=== PATIENT | male | born 1950 | race Caucasian/White ===

== ENCOUNTER → 2017-09-29 11:01 | Outpatient (CLI) | payer BC, SELFPAY ==
--- NOTE | 2017-09-29 11:17 | MRI_ITS ---
MR Brain WO/W Contrast INDICATION: phantosomia (smoke)x 4 weeks, NKI, NO PAIN COMPARISON: None TECHNIQUE: Multiplanar multisequence MRI examination of the brain without and with IV contrast. 10 mL of GADAVIST given intravenously.. FINDINGS: There is no evidence of restricted diffusion to suggest acute ischemia/infarction. Ventricular system is normal in size and symmetric. Cortical sulci, sylvian fissures, and basal cisterns are well seen. Cao-white matter differentiation is normal. Midline structures and craniocervical junction are normal. The cerebellopontine angles are normal and symmetric. Supra-and infratentorial brain parenchyma demonstrates normal signal. The olfactory bulbs are normal and symmetric. There is no evidence of parenchymal microhemorrhage, mass effect or midline shift, or abnormal extra-axial collection. After contrast administration, there is no abnormal enhancement identified. Flow-voids of the [place] vascularity are well seen. The paranasal sinuses and mastooid air cells are clear. MRI/Brain W/WO Contrast IMPRESSION: Normal noncontrast MRI examination of the brain. Normal appearance of the olfactory bulbs. at 1410 Reported and signed by: Sue Jiménez MD Electronically Signed: Sue Jiménez MD at 13:08 EDT Tel , Service support ,
[2017-09-29 11:41] LABS: CREATININE FINGERSTICK 0.7 mg/dL (0.70-1.30); EGFR FINGERSTICK > 60.0000 mL/min (>60)
== END ==
PROVIDERS: Family Provider Internal Medicine; PCP Internal Medicine; Visit Provider Otolaryngology
DX: Z01.812 Encounter for preprocedural laboratory examination (principal); R43.8 Other disturbances of smell and taste
CPT/HCPCS: 70553; A9585

== ENCOUNTER → 2017-12-14 09:29 | Outpatient (CLI) | payer BC, SELFPAY ==
--- NOTE | 2017-12-14 09:33 | RAD_ITS ---
STUDY: X-RAY - LEFT SHOULDER REASON FOR EXAM: Male, 67 years old. Pain. Impingement syndrome. TECHNIQUE: 4 view(s) of the shoulder. COMPARISON: None. FINDINGS: There is mild degenerative arthrosis of the glenohumeral articulation. Normal acromioclavicular joint. Normal acromion. Hold nonhealed avulsion fracture of the greater tuberosity of the proximal humerus. The soft tissue structures are unremarkable. Normal visualized pulmonary apex. RAD/Shoulder min 2 Views IMPRESSION: Old avulsion fracture of the greater tuberosity of the proximal humerus. Mild degree of osteoarthritis. Electronically Signed: Higinio Brothesr MD at 15:54 EDT Tel [phone], Service support ,
== END ==
PROVIDERS: Family Provider Internal Medicine; PCP Internal Medicine; Visit Provider Physician Assistant
DX: M75.42 Impingement syndrome of left shoulder (principal); M25.512 Pain in left shoulder
CPT/HCPCS: 73030

== ENCOUNTER → 2018-02-03 09:45 | Outpatient (CLI) | payer BC, SELFPAY ==
--- NOTE | 2018-02-03 09:47 | RAD_ITS ---
STUDY: X-RAY - CERVICAL SPINE REASON FOR EXAM: Male, 67 years old. Neck pain for one month. TECHNIQUE: 6 view(s) of the cervical spine were obtained. COMPARISON: None FINDINGS: There is generalized osteopenia. Normal anterior atlantoaxial articulation. Normal odontoid process. Normal cervical lordosis. Normal vertebral bodies and endplates. There is intervertebral disc space narrowing at C5-6 and C6-7 with osteophyte formation. There is anterior bony neural foraminal encroachment at C5-6 and C6-7. There is diffuse uncovertebral and facet sclerosis. The soft tissue structures are unremarkable. RAD/Cerv Spine 4 or 5 Views IMPRESSION: Osteopenia with lower cervical spondylosis. Electronically Signed: Cristhian Gomez MD at 16:35 EDT , Service support ,
== END ==
PROVIDERS: Family Provider Internal Medicine; PCP Internal Medicine; Visit Provider Orthopaedic Surgery
DX: M54.2 Cervicalgia (principal)
CPT/HCPCS: 72050

== ENCOUNTER → 2018-02-10 16:56 | Outpatient (CLI) | payer BC, SELFPAY ==
--- NOTE | 2018-02-10 17:32 | MRI_ITS ---
STUDY: MRI CERVICAL SPINE WITHOUT CONTRAST REASON FOR EXAM: Male, 67 years old. Neck pain for 2 months and left arm numbness TECHNIQUE: Standardized fat and water weighted pulse sequences were obtained in the sagittal and axial planes. COMPARISON: None FINDINGS: Normal foramen magnum and brainstem-cervical cord junction. Normal craniovertebral junction. Normal anterior atlantoaxial articulation. Normal odontoid process. Normal cervical lordosis. Normal vertebral bodies and posterior osseous elements. C2-3: Disc osteophyte complex without compressive sequelae. C3-4: Disc osteophyte complex with mild central canal and severe bilateral foraminal stenoses. C4-5: Disc osteophyte complex with severe central canal stenosis, mild cord compression, and severe bilateral foraminal stenoses. C5-6: Disc osteophyte complex with moderate to severe central canal stenosis and severe bilateral foraminal stenoses. C6-7: Disc osteophyte complex with moderate central canal stenosis and severe bilateral foraminal stenoses. C7-T1: Disc osteophyte complex and left paracentral disc protrusion with mild deformity of the ventral cord and mild bilateral foraminal stenoses. Incompletely imaged disc disease at T1-2, possibly with left foraminal disc extrusion. Consider dedicated thoracic spine MRI to evaluate further if indicated. No cord signal abnormalities are seen. Normal visualized soft tissue structures. MRI/Spine Cervical (Routine) IMPRESSION: Diffuse degenerative disease as described. Severe bilateral foraminal stenoses at C3-4, C4-5, C5-6, and C6-7. Severe central canal stenosis and mild cord compression at the C4-5 level. Incompletely imaged disc disease at T1-2, possibly with left foraminal disc extrusion. Consider dedicated thoracic spine MRI to evaluate further if indicated. Electronically Signed: Robinson Yadav MD at 2:00 EDT Tel , Service support ,
== END ==
PROVIDERS: Family Provider Internal Medicine; PCP Internal Medicine; Visit Provider Orthopaedic Surgery
DX: M54.12 Radiculopathy, cervical region (principal); M46.92 Unspecified inflammatory spondylopathy, cervical region; M25.78 Osteophyte, vertebrae
CPT/HCPCS: 72141

== ENCOUNTER 2018-04-01 09:00 | Outpatient (RCR) | payer BC, SELFPAY ==
--- NOTE | 2018-02-08 15:12 | HP.PTEVAL_ITS ---
Patient's Visit Information KIAH GARVIN is a 67 year old M referred to Physical Therapy by Melania Darby DO with a diagnosis of CREVICAL RADICULOPATHY. Date of Evaluation: 02/08/18 Physical Therapist: Noreen Hi - Visit Plan Frequency: 2-3x /Week Duration: 4-6 Weeks Plan: CHECK MRI RESULTS. POSTURE CORRECTION/STRENGTHENING, INSTRUCTION IN APPROPRIATE BODY MECHANICS AND ACTIVITY MODIFICATIONS. ANTHONY UE ROM, STRETCHING AND STRENGTHENING. HEP INSTRUCTION. TRIAL OF CERVICAL TRACTION. CONSIDER DRY NEEDLING IF PATIENT AGREEABLE. US, STM AND E-STIM NEEDED/ INDICATED. - Subjective Subjective: Diagnosis: CERVICAL RADICULOPATHY. 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 Disability: NO. Present symptoms: LEFT NECK PAIN AND NUMBNESS ALONG INSIDE OF ARM TO WRIST. SOME PAIN INTO LEFT PEC. Present since: NOVEMBER 2017. Pain Scale: Worst - 4/10 Least - 1/10. Currently: 09/25. Commenced as a result of: NO APPARENT REASON. Symptoms at onset: NUMBNESS IN LEFT ARM. Worse: LOOKING UP AND TO THE LEFT, SQUEEZING SHOULER BLADES TOGETHER, PLAYING [employer] [facility], PROLONGED SITTING AT DESK, LOOKING AT COMPUTER SCREEN A LOT. Better: TILTING HEAD TO THE RIGHT, LYING DOWN. Disturbed sleep: YES. Previous history/ Previous treatment: ABOUT 10 YEARS AGO HAD NECK AND RIGHT UE SX'S BUT THEY WENT AWAY. CHIROPRACTOR IN THE PAST MAINLY FOR LOW BACK. THIS EPISODE WENT FOR NECK - 2 TIMES BUT EACH TIME PROVOKED LEFT UE SX'S AND DID NOT GO BACK. Dizziness: NO. Tinnitis: NO. Nausea: NO. Difficulty Swollowing: NO. Gait : NORMAL. Accidents: NO. Unexplained weight loss: NO. Imaging: MRI PENDING WEDNESDAY. NECK X-RAYS RECENTLY SHOWING ARTHRITIS C5C6 PER PATIENT REPORT. PMH/Recent major surgery: HTN, RIGHT TKR - Objective Sitting Posture/Standing Posture: POOR. RIGHT CERVICAL SIDE BEND. Other Observations: INDEP GAIT AND TRANSFERS. Motor deficit: ANTHONY UE'S 5/5 WITH MMT' ING. 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 Sensory deficit: DECREASED LIGHT TOUCH SENSATION OF LEFT MEDIAL ARM AND FOREARM. ROM deficit: ANTHONY UE'S WFL. Reflexes: UNABLE TO ELICIT ANTHONY UE DTR' S. Dural Signs: POSITIVE LEFT UE. Cervical Mvmt Loss: Flex: NIL. Pro: NIL. Ext: MOD - PROVOKES LEFT ARM AND FOREARM MEDIAL TINGLING. Ret: HILDA - PROVOKES LEFT ARM AND FOREARM MEDIAL TINGLING AND INTO LEFT PEC. RSB: MOD - DECREASES LEFT UE SX'S IN SIDEBENT POSITION BUT UE SX'S INCREASE AGAIN UPON RETURN. LSB: HILDA - PROVOKES LUE SX'S. R Rot: MOD - PRODUCES NECK PAIN. L Rot: MOD - PRODUCES LEFT PEC. Postural strength: POOR. Palpation: TENDERNESS WITH PALPATION OF THE UPPER THORACIC AND LOWER CERVICAL SPINE. INCREASED MUSCLE TONE THROUGHOUT NECK. DISTRACTION: TEMPORARY RELIEF OF SX'S. NB/NW A RESULT. - Goals Goal 1:: DECREASE C/O NECK AND LEFT UE SX'S. Goal Time Frame: 4-6 Weeks Goal 2:: IMPROVE PERSONAL CARE, READING, SLEEP, DRIVING AND RECREATIONAL FUNCTION. Goal Time Frame: 4-6 Weeks Goal 3:: INSTRUCT IN PROPHYLAXIS Goal Time Frame: 4-6 Weeks - Rehabilitation Potential Rehabilitation Potential: Questionable - Anticipated Interventions Patient/Client Instruction: Educate patient on: Condition, Plan of Care, Risk Factors, Benefits of Fitness Program For the Purpose of:: To improve self management Therapeutic Exercise to Include: Strength training, Body mechanics, Postural training, Flexibilty training, Active ROM, Scapular Strength/Stabilization For the Purpose of:: To decrease pain, To increase ROM, To improve muscle performance and motor function, To increase tolerance to activity/condition/ position, To improve ability of physical actions for home/community/work/leisure Manual Therapy Techniques to Include: Soft tissue mobilization For the Purpose of:: To decrease pain, To decrease swelling/inflammation, To increase ROM, To improve nutrient delivery to tissue TENS: Yes IF ES: Yes Cryotherapy (ice pack, ice massage): Yes Thermo therapy (hot pack): Yes Ultrasound (thermal/non thermal): Yes For the Purpose of:: To decrease pain, To decrease swelling/inflammation, To improve nutrient delivery to tissue Thank you for the opportunity to evaluate your patient. For Medicare and Medicare HMO plans, please review the plan of care and approve it. It will need to be FAXED BACK to us at [phone] for Medicare purposes. Please let me know if there are questions or concerns regarding this plan of care. Physician Signature: Date:
--- NOTE | 2018-03-08 14:33 | HP.PTREVAL_ITS ---
Melania Darby, , It has been my pleasure to treat KIAH GARVIN over the last 7 visits for CREVICAL RADICULOPATHY. Please see the progress note below for an update on the physical therapy plan of care! Subjective: PATIENT IS REPORTING LESS LUE NUMBNESS TODAY FOR NO APPARENT REASON. I STILL HAVE SOME BUT IT IS NOT TO THE DEGREE IT HAD BEEN. NO STABBING PAIN. INTERMITTENT ACHY PAIN BETWEEN SPINE AND SHOULDER BLADE. TODAY I FEEL THE BEST I HAVE IN A MONTH AND A HALF. UP TO 4/10 PAIN IN NECK SHOULDER BLADE REGION AT ITS WORST IN THE LAST FEW DAYS. APPOINTMENT WITH DR. RODRIGUEZ TOMORROW. PATIENT REPORTS HOME EX'S ARE GOING WELL. Objective/Function: SLOW PROGRESS TOWARD SET PT GOALS. UPON EXAM TODAY: Sitting Posture/Standing Posture: FAIR. RIGHT CERVICAL SIDE BEND THAT IS VERY MINIMAL AT THE START OF THE SESSION AND INCREASES THE SESSION PROGRESS'S. Other Observations: INDEP GAIT AND TRANSFERS. Motor deficit: ANTHONY UE'S 5/5 WITH MMT'ING. Sensory deficit: DECREASED LIGHT TOUCH SENSATION OF LEFT MEDIAL ARM AND FOREARM ONLY. ROM deficit: ANTHONY UE'S WFL. Dural Signs: POSITIVE LEFT UE. Cervical Mvmt Loss: Flex: NIL - NE. Pro: NIL - NE. Ext: MOD - NE AND LOOKING UP TO THE LEFT USE TO INCREASE LUE SX'S BUT NOT TODAY. Ret: HILDA - NE AT FIRST BUT REPETITION PROVOKES LEFT ARM AND FOREARM MEDIAL TINGLING. RSB: MOD -NE. LSB: MOD. THIS IS AN IMPROVEMENT AND TODAY IT DOES NOT INCREASE LUE SX'S. R Rot: MOD - NE. L Rot: MIN - PRODUCES LEFT PEC. Postural strength: FAIR. Palpation: TENDERNESS WITH PALPATION OF THE UPPER THORACIC SPINE ONLY TODAY. INCREASED MUSCLE TONE THROUGHOUT NECK. TREATMENT TODAY: MINIMAL CUEING REQUIRED TODAY FOR PATIENT TO PERFORM HOME EX'S CORRECTLY EXCEPT REP RET IS WHICH REQUIRED MORE CUEING. PATIENT UNABLE TO DO REP RET IS EVEN WITH MODIFICATIONS WITHOUT PERIPHERALIZING SX'S THEREFORE THIS HAS NOT BEEN INCLUDED IN THE HOME PROGRAM. PATIENT TOLERATED ALL OTHER INTERVENTIONS WELL TODAY. Plan Plan: PATIENT IS APPROPRIATE TO CONTINUE PT IF SURGEON AGREES BASED ON PROGRESS MADE AND ROOM FOR MORE IMPROVEMENT. RECOMMEND CONTINUED PT PER CURRENT POC: POSTURE CORRECTION/STRENGTHENING PROGRESSION, INSTRUCTION IN APPROPRIATE BODY MECHANICS AND ACTIVITY MODIFICATIONS. ANTHONY UE ROM, STRETCHING AND STRENGTHENING. HEP INSTRUCTION. CONSIDER DRY NEEDLING IF PATIENT AGREEABLE. US , STM AND E-STIM NEEDED/INDICATED. PATIENT IS AGREEABLE AND WILL CALL AFTER HIS SURGICAL CONSULT. Goals Goal 1:: DECREASE C/O NECK AND LEFT UE SX'S. Goal Time Frame: 4-6 Weeks Goal Progress: Progressing Goal 2:: IMPROVE PERSONAL CARE, READING, SLEEP, DRIVING AND RECREATIONAL FUNCTION. Goal Time Frame: 4-6 Weeks Goal Progress: Progressing Goal 3:: INSTRUCT IN PROPHYLAXIS Goal Time Frame: 4-6 Weeks Goal Progress: Progressing Anticipated Interventions Patient/Client Instruction: Educate patient on: Condition, Plan of Care, Risk Factors, Benefits of Fitness Program For the Purpose of:: To improve self management Therapeutic Exercise to Include: Strength training, Body mechanics, Postural training, Flexibilty training, Active ROM, Scapular Strength/Stabilization For the Purpose of:: To decrease pain, To increase ROM, To improve muscle performance and motor function, To increase tolerance to activity/condition/ position, To improve ability of physical actions for home/community/work/leisure Manual Therapy Techniques to Include: Soft tissue mobilization For the Purpose of:: To decrease pain, To decrease swelling/inflammation, To increase ROM, To improve nutrient delivery to tissue TENS: Yes IF ES: Yes Cryotherapy (ice pack, ice massage): Yes Thermo therapy (hot pack): Yes Ultrasound (thermal/non thermal): Yes For the Purpose of:: To decrease pain, To decrease swelling/inflammation, To improve nutrient delivery to tissue Please do not hesitate to contact me at [phone] by phone or Fax: if you have questions or concerns regarding this new plan of care! Sincerely, Noreen Hi
--- NOTE | 2018-04-01 10:03 | HP.PTDCSUM_ITS ---
HP - PT D/C Summary It has been my pleasure to treat KIAH GARVIN under orders from Melania Darby DO, for the diagnosis of CREVICAL RADICULOPATHY for a total of 10 visit(s). Discharge Date: 04/01/18 Please see the following information for a summary of their discharge status. - Subjective Subjective: CONTINUING TO GET BETTER. HAVING JUST A TINY BIT OF LEFT FOREARM NUMBNESS THAT IS MORE LOCALIZED NOW. PATIENT REPORTS COMPLIANCE WITH HOME INSTRUCTIONS AND FEELING READY FOR DISCHARGE. - Pain NECK Pain Intensity (Out of 10): 0 - Overall Improvement % Improvement: 80 - Objective Objective/Function: ALL GOALS MET. UPON EXAM, ONLY LEFT CERVICAL ROTATION ROM PROVOKES MILD TRANSIENT C/O LEFT PEC PAIN. Sitting Posture/Standing Posture: FAIR AND IMPROVING. Other Observations: INDEP GAIT AND TRANSFERS. Motor deficit: ANTHONY UE'S 5/5. Sensation: C/O MILD LEFT MEDIAL FOREARM LOCALIZED NUMBNESS THAT IS IMRPOVING. ROM deficit: ANTHONY UE'S WFL BUT STILL WITH SOME END- RANGE SHOULDER TIGHTNESS THAT IS BEING ADDRESSED WITH HEP. Dural Signs: POSITIVE LEFT UE. Cervical Mvmt Loss: Flex: NIL - NE. Pro: NIL - NE. Ext: MOD - NE. Ret: HILDA BUT IMPROVING - NE - NOW ABLE TO TOLERATE REPEATED RETRACTION WITHOUT PERIPHERALIZING SX'S. RSB: MOD -NE. LSB: MOD. NE. R Rot : MIN - NE. L Rot: MIN - PRODUCES LEFT PEC. Postural strength: FAIR AND IMPROVING. OTHER: PATIENT COMMUNICATES AND/OR DEMONSTRATES A GOOD UNDERSTANDING OF ALL HOME INSTRUCTIONS. - Goals Goal 1:: DECREASE C/O NECK AND LEFT UE SX'S. Goal Progress: Goal Met Goal 2:: IMPROVE PERSONAL CARE, READING, SLEEP, DRIVING AND RECREATIONAL FUNCTION. Goal Progress: Goal Met Goal 3:: INSTRUCT IN PROPHYLAXIS Goal Progress: Goal Met - Plan Plan: D/C TO INDEP EX. PATIENT REPORTS HE WILL FOLLOW UP WITH DR. RODRIGUEZ NEEDED. - D/C Information If there are questions or concerns regarding this patient's physical therapy, please feel free to call me at [phone]. Thank you for the referral of this patient. Sincerely, Noreen Hi
== END 2018-04-01 15:56 | disposition home or self-care (01) ==
LOC: PT 09:00
PROVIDERS: Family Provider Internal Medicine; PCP Internal Medicine; Visit Provider Orthopaedic Surgery
DX: M54.12 Radiculopathy, cervical region (principal)
CPT/HCPCS: 97035; 97110; 97162; 97164; 97530

== ENCOUNTER → 2019-04-12 06:04 | Outpatient (CLI) | payer BC, SELFPAY ==
[2019-04-05 14:20] VITALS: BMI 45.1
--- NOTE | 2019-04-12 06:05 | ECHOCS_ITS ---
Reason For Study: MURMUR Procedure This was a 2D Doppler, Color Flow transthoracic echocardiogram. Exam performed in department. Left Ventricle Normal LV size. Left ventricular systolic function is normal. The estimated ejection fraction is 60 %. Normal diastology for age. No regional wall motion abnormalities noted. Right Ventricle Normal RV size. Normal systolic function. Atria Normal left atrium. Normal right atrium. Mitral Valve Normal mitral valve. Tricuspid Valve Normal tricuspid valve. Mild tricuspid valve insufficiency. Pulmonary artery systolic pressure is 25 mmHg. Aortic Valve Trisinus/trileaflet aortic valve. Mild diffuse aortic valve thickening. Pulmonic Valve Normal pulmonic valve. Great Vessels Normal aortic root. The pulmonary artery is normal size. Normal inferior vena cava. Pericardium/Pleural No pericardial effusion. Medication Diluted definity 3ml given slow IV push to enhance endocardial definition. MMode/2D Measurements & Calculations LVIDd: 5.0 cm IVSd: 0.88 cm Ao root diam: 3.4 cm LVIDs: 3.4 cm LVPWd: 0.93 cm RVDd: 4.4 cm FS: 31.6 % LAV(MOD-bp): 58.7 ml LVAd ap4: 40.0 cm2 SV(MOD-sp4): 82.1 ml LAV(MOD-bp) Indexed: 26.0 ml/m2 EDV(MOD-sp4): 132.1 ml LAV(MOD-sp2): 75.4 ml EDV(sp4-el): 139.5 ml LAV(MOD-sp4): 41.1 ml LVAs ap4: 22.3 cm2 ESV(MOD-sp4): 50.0 ml ESV(sp4-el): 51.8 ml EF(MOD-sp4): 62.2 % EF(sp4-el): 62.9 % SV(sp4-el): 87.7 ml LA A4 area: 16.3 cm2 LA dimension(2D): 3.9 cm RA A4 area: 14.1 cm2 Time Measurements MV dec time: 0.32 sec Doppler Measurements & Calculations MV E max fercho: 84.6 cm/sec Lat Peak E' Fercho: 15.4 cm/sec Med Peak E' Fercho: 11.8 cm/sec MV A max fercho: 81.0 cm/sec E/E' lat: 5.5 E/E' med: 7.2 MV E/A: 1.0 Ao V2 max: 171.2 cm/sec LV V1 max: 155.9 cm/sec PA V2 max: 138.1 cm/sec Ao max P.7 mmHg LV V1 max P.7 mmHg TR max fercho: 232.8 cm/sec TR max P.7 mmHg Interpretation Summary Normal LV size. Left ventricular systolic function is normal. The estimated ejection fraction is 60 %. Normal diastology for age. Mild diffuse aortic valve thickening. Ordering Physician: Edi Gallegos Referring Physician: MIGUEL MIDDLETON Performed By: Yuko Todd RDCS
--- NOTE | 2019-04-12 18:21 | STRESSREP ---
Stress Test Report Exercise myocardial perfusion stress test. 68-year-old male with a history of chest pain and cardiac murmur. Medications: Lisinopril, HCTZ, amlodipine. Stress protocol: Resting EKG demonstrates normal sinus rhythm with a rate of 60 bpm normal intervals are noted resting blood pressures 158/82 mmHg. The patient exercised according to regular Yared protocol for a total duration of 8 minutes. Patient completed 2 minutes into stage III of the Yared protocol the maximum heart rate attained was 148 bpm which was 96% of maximum predicted heart rate the maximum workload was 10.1 metabolic equivalents. At rest there were no ST or T wave changes no suggest ischemia peak exercise upsloping ST changes only were noted with no meet the criteria for ischemia. No clinical angina was noted the test was terminated due to dyspnea. The resting blood pressure was 158/82 with a peak blood pressure of 204/78. Myocardial perfusion protocol. 14.6 mCi of technetium 99m sestamibi was injected at rest. The patient exercised according to regular Yared protocol at peak exercise 44.4 mCi of technetium 99m sestamibi was injected stress images were obtained stress and rest images were reconstructed and compared in the short axis vertical long horizontal long axis. Gated images were also obtained Perfusion SPECT analysis: Review of the stress images demonstrate normal uptake of tracer noted in all areas of myocardium the resting images similar demonstrate normal uptake of tracer noted in all areas of the myocardium. No areas of reversibility are noted suggest ischemia no previous infarct is noted. Gated SPECT analysis: The gated ejection fraction is noted to be 64%. Conclusion: Normal exercise myocardial perfusion stress test at a high workload. No clinical angina noted. Preserved ejection fraction. Hypertensive response to exercise.
== END ==
PROVIDERS: Family Provider Internal Medicine; PCP Internal Medicine; Referring Provider Internal Medicine Cardiovascular Disease; Visit Provider Internal Medicine Cardiovascular Disease
DX: R07.9 Chest pain, unspecified (principal); R01.1 Cardiac murmur, unspecified
CPT/HCPCS: 78452; 93017; 93306; A9500; Q9957; A4216; C8929

== ENCOUNTER 2020-08-13 08:26 | Outpatient (RCR) | payer BC, SELFPAY ==
--- NOTE | 2020-08-13 09:44 | HP.PTEVAL_ITS ---
Patient's Visit Information KIAH GARVIN is a 69 year old M referred to Physical Therapy by Dr. Melania Darby DO with a diagnosis of R shoulder GH joint OA, R shoulder bursitis. Date of Evaluation: 08/13/20 Physical Therapist: CHARLEY Mack - Visit Plan Frequency: 1-2x /Week Duration: 4-6 Weeks Plan: 1-2X/ week for 4-6 weeks for joint mobs, end range stretching, scapular and RC strength with US to anterior R shoulder to decrease pain with HEP - Subjective Pt reports that he did somthing to his R shoulder when he was carrying something heavy and bothered him for awhile and then a few weeks later he was doing a repetitive motion and saw Dr Alvarez and got an injection. It helped some but it is still there. said that he has some tyociall arthritis. About 25 years ago he heard something pop and just found out recently that he broke the top off the top of his shoulder and it healed but not correctly. He is R handed. 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 His pain is more of a nagging pain espcially at night when laying on it. Taking off his jacket is hard for him and demonstrates ER typle motions. He is painful at end range flexion etc. He does not get sharp pain too ofter. He wakes up in the night due to his shoulder sometimes. - Pain R shoulder pain Pain Intensity (Out of 10): 3 - Objective [employer] R12 Developer strength: R handed: R 110# and L 105#. AROM: R shoulder flexion 134 degrees, and L shoulder flexion 145 degrees. R shoulder abd 115 degrees, and L shoulder abd 160 degrees. R shoulder IR L1 and L IR T11. R shoulder ER 50 and L 65 degree. MMT: R shld flex 4/5. R shld Abd 4-/5. R shld ER 4-/5. R shld IR 4/5. Tender under R AC joint and space. PROM R shoulder: painful at endranges and decreased PROM. -Empty can test R. +HK test on the R for anterior shoulder pain - Goals Goal 1:: I HEP Goal Time Frame: 4-6 Weeks Goal 2:: Increase R shoulder AROM to equal that of the L (at time of eval: R shoulder flexion 134 degrees, and L shoulder flexion 145 degrees. R shoulder abd 115 degrees, and L shoulder abd 160 degrees. R shoulder IR L1 and L IR T11. R shoulder ER 50 and L 65 degree) Goal Time Frame: 4-6 Weeks Goal 3:: Decrease R shoulder pain to 1/10 with ADL's Goal Time Frame: 4-6 Weeks Goal 4:: Be able to put on a coat with his R shoulder without pain. Goal Time Frame: 4-6 Weeks - Rehabilitation Potential Rehabilitation Potential: Good - Anticipated Interventions Patient/Client Instruction: Educate patient on: Condition, Plan of Care For the Purpose of:: To decrease pain, To decrease swelling/inflammation, To increase ROM, To improve nutrient delivery to tissue, To improve muscle performance and motor function, To improve ability to perform ADL's, To increase tolerance to activity/condition/position, To improve performance and independence with ADL's, To improve health of tissue, To decrease soft tissue restriction, To increase flexibility/ROM Therapeutic Exercise to Include: Strength training, Postural training, Fl exibilty training, Passive ROM, Active ROM, Scapular Strength/Stabilization For the Purpose of:: To decrease pain, To decrease swelling/inflammation, To increase ROM, To improve nutrient delivery to tissue, To improve muscle performance and motor function, To increase tolerance to activity/condition/position, To improve health of tissue, To decrease soft tissue restriction, To increase flexibility/ROM Manual Therapy Techniques to Include: Mobilization, Passive ROM For the Purpose of:: To decrease pain, To increase ROM, To improve nutrient delivery to tissue, To improve muscle performance and motor function, To improve ability to perform ADL's, To improve performance and independence with ADL's, To improve health of tissue, To increase flexibility/ROM Ultrasound (thermal/non thermal): Yes For the Purpose of:: To decrease pain, To decrease swelling/inflammation, To increase ROM, To improve nutrient delivery to tissue Thank you for the opportunity to evaluate your patient. For Medicare and Medicare HMO plans, please review the plan of care and approve it. It will need to be FAXED BACK to us at [phone] for Medicare purposes. For Medicare only, by signing this I certify the plan of care. Please let me know if there are questions or concerns regarding this plan of care. Physician Signature: Date:
--- NOTE | 2020-09-17 11:20 | HP.PT.NRP ---
KIAH GARVIN was seen in my office for initial evaluation on 08/13/20. The following Plan of Care was established for this patient: Initial Frequency: 1-2x /Week Initial Duration: 4-6 Weeks Patient/Client Instruction: Educate patient on: Condition, Plan of Care For the Purpose of:: To decrease pain, To decrease swelling/inflammation, To increase ROM, To improve nutrient delivery to tissue, To improve muscle performance and motor function, To improve ability to perform ADL's, To increase tolerance to activity/condition/position, To improve performance and independence with ADL's, To improve health of tissue, To decrease soft tissue restriction, To increase flexibility/ROM Therapeutic Exercise to Include: Strength training, Postural training, Flexibilty training, Passive ROM, Active ROM, Scapular Strength/Stabilization For the Purpose of:: To decrease pain, To decrease swelling/inflammation, To increase ROM, To improve nutrient delivery to tissue, To improve muscle performance and motor function, To increase tolerance to activity/condition/position, To improve health of tissue, To decrease soft tissue restriction, To increase flexibility/ROM Manual Therapy Techniques to Include: Mobilization, Passive ROM For the Purpose of:: To decrease pain, To increase ROM, To improve nutrient delivery to tissue, To improve muscle performance and motor function, To improve ability to perform ADL's, To improve performance and independence with ADL's, To improve health of tissue, To increase flexibility/ROM Ultrasound (thermal/non thermal): Yes For the Purpose of:: To decrease pain, To decrease swelling/inflammation, To increase ROM, To improve nutrient delivery to tissue This patient was last seen in our office 08/13/20. Pertinent comments regarding their Physical therapy will appear below: [facility]URA PT... pt cancelled his last appt with us as he was in the ER and did not reschedule. [facility]URA PT At this point I will be discontinuing this patient from physical therapy. I would be happy to see this patient again in the future if found appropriate by the physician. Thank you! Destiny Brambila, MPT
== END 2020-08-13 19:00 | disposition home or self-care (01) ==
LOC: PT 08:26
PROVIDERS: PCP Internal Medicine; Referring Provider Orthopaedic Surgery; Visit Provider Orthopaedic Surgery
DX: M19.011 Primary osteoarthritis, right shoulder (principal); M75.51 Bursitis of right shoulder
CPT/HCPCS: 97161

== ENCOUNTER 2020-08-20 04:02 | Emergency (ER) | payer BC, SELFPAY ==
[2020-08-20 04:02] VITALS: PULSE 65; RESP 16; TEMP 36.6; O2SAT 97; BMI 32.9
--- NOTE | 2020-08-20 04:20 | CT_ITS ---
STUDY: CT ABDOMEN AND PELVIS WITHOUT CONTRAST REASON FOR EXAM: Male, 69 years old. LEFT FLANK PAIN WITH NAUSEA X FEW HOURS, HX KS IN PAST, HTN RADIATION DOSAGE (If Supplied By Facility): CTDIvol = ( 18.44 ) mGy, DLP = ( 1022.77 ) mGycm TECHNIQUE: Transaxial images were obtained from the dome of the diaphragm to the symphysis pubis without oral contrast, and without intravenous contrast. Sagittal and coronal images were reconstructed. Individualized dose optimization techniques were used for this CT. COMPARISON: None. FINDINGS: There is minimal lower lobe atelectasis. The visualized portions of the heart are within normal limits. There is decreased attenuation of the liver consistent with steatosis. Normal gallbladder and extrahepatic biliary system. Normal spleen. Normal pancreas. Normal bilateral adrenal glands. Normal right kidney. There is a 4 mm stone lower pole left kidney. There are a few punctate stones in the left kidney. There is mild to moderate left hydronephrosis , there is a stone in the proximal left ureter at the UPJ level measuring 1.0 x 0.66 cm. Normal visualized stomach. There is mild distention of the small bowel. There is mild to moderate stool in the colon. There is diverticulosis without diverticulitis. The appendix is visualized and appears normal. The aorta is partially calcified. Normal inferior vena cava. Normal retroperitoneum. Normal urinary bladder. Normal visualized prostate gland. Normal abdominal wall. There are diffuse degenerative changes of the visualized lumbar spine. CT/Abdomen/Pelvis without Cont IMPRESSION: Obstructing stone left proximal ureter approximately at the level of the ureteral pelvic junction measuring 1.0 x 0.66 cm. There is moderate left hydronephrosis. There are multiple stones left kidney. Mild/moderate constipation diverticulosis no diverticulitis. Findings suggest mild ileus. No appendicitis. Degenerative changes of thoracolumbar spine. Electronically Signed: Emily Collins MD at 4:58 EST Tel , Service support ,
[2020-08-20 04:21] LABS: Bacteria 0 SEEN /hpf (None Seen); Mucous, Urine 0 SEEN /hpf (<or=2+)
[2020-08-20 04:24] LABS: Absolute Lymphocyte Count 2.42 X10^3/uL (0.83-4.51); Absolute Neutrophil Count 4.9 X10^3/uL (2.0-7.7); Basophil# 0.04 X10^3/uL; Basophil% 0.5 % (0-1); Eosinophil# 0.13 X10^3/uL; Eosinophils% 1.6 % (0-5); Hematocrit 39.8 % (40-54); Hemoglobin 14.2 g/dL (13.0-16.5); Lymphocyte # 2.42 X10^3/ul (4.0); Lymphocyte % 29.4 % (19-41); Mean Corp Hgb Conc 35.7 g/dL (32-36); Mean Corpuscular Hgb 31.7 pg (27.0-32.0); Mean Corpuscular Volume 88.8 fL (80-94); Mean Platelet Vol. 9.3 fl (6.2-12.0); Monocyte# 0.72 X10^3/uL; Monocyte% 8.8 % (0-10); NRBC Flagged by Analyzer 0 % (0-5); Neutrophil # 4.86 X10^3/uL (2.7-7.7); Neutrophil % 59.1 % (47-70); Platelet Count 237 K/mm3 (150-450); RBC Distribution Width CV 13.7 % (11.6-14.6); RBC Distribution Width SD 43.8 fl (35.1-43.9); Red Blood Count 4.48 M/mm3 (4.6-6.2); White Blood Count 8.2 K/mm3 (4.4-11.0)
[2020-08-20 04:27] LABS: Color, Urine Yellow (Yellow); Glucose, Dipstick Normal (Normal); Ketone-Dipstick Negative (Negative); Leukocyte Esterase-Dipstick 25 /ul (Negative); Nitrite-Dipstick Negative (Negative); Occult Blood-Urine 250 /ul (Negative); Protein-Dipstick 15 mg/dl (Negative); Specific Gravity, Urine 1.025 (1.002-1.030); Urine Bilirubin Dipstick Negative (Negative); Urine Clarity Clear (Clear); Urine Urobilinogen Normal (Normal)
[2020-08-20 04:33] LABS: Red Blood Cells-Urine 25-50 SEEN /hpf (0-5); Squamous Epithelial Cells - UA 0-5 SEEN /hpf (0-5); White Blood Cells 5-10 SEEN /hpf (0-5)
[2020-08-20] MEDS: 0.9% Normal Saline 1,000 ML 1000 ML IV (04:36)
[2020-08-20] MEDS: Ondansetron 4 MG/2 ML Vial IV (04:36)
[2020-08-20] MEDS: Morphine 4 MG/ML Syringe IV (04:36)
[2020-08-20 04:37] LABS: ALB/GLOB Ratio 1.2 RATIO (0.9-2.4); AST(SGOT) 15 U/L (15-37); Alanine Aminotransfer ALT/SGPT 32 U/L (16-61); Albumin, Serum 3.7 g/dL (3.2-5.0); Alkaline Phosphatase 73 U/L (45-117); Anion Gap 8 (5-15); BUN 20 mg/dL (7-18); BUN/Creat Ratio 17.9 RATIO (10-20); Calcium,Total 8.8 mg/dL (8.5-10.1); Chloride 107 mmol/L (98-107); Creatinine, Serum 1.12 mg/dL (0.70-1.30); EST Glomerular Filtration Rate 69 mL/min (>60); Est Glom Filt Rate - Afr Amer 84 mL/min (>60); Estimated Creatinine Clearance 68.17 ml/min; Globulin 3.2 g/dL (2.2-4.2); Glucose 144 mg/dL (74-106); Potassium 3.4 mmol/L (3.5-5.1); Protein, Total 6.9 g/dL (6.4-8.2); Sodium Level 139 mmol/L (136-145)
[2020-08-20] MEDS: Ketorolac 15 MG/ML Vial IV (04:37)
--- NOTE | 2020-08-20 04:39 | ED.DCSUM_ITS ---
History of Present Illness Chief Complaint: Flank Pain Informant: Patient - Abdominal Pain/Flank Pain Onset: Yesterday Context: Gradual Onset Timing: Intermittent, Waxes and wanes Quality: Sharp Location: LLQ, Left Flank - Nausea/Vomiting/Emesis GI Symptom: Nausea Narrative: Patient is a 69-year-old male with known history of kidney stones presenting with worsening pain in his left lower quadrant. Patient states it feels like prior kidney stones however on the opposite side. States the pain does not really radiate. He started having mild pain yesterday but then tonight the pain woke him up from sleep. He took some [place] prior to arrival without any relief of his pain. He does have some associated nausea and feels clammy secondary to the pain. He denies any radiation of pain into his back or testicles. He denies any hematuria, dysuria or frequency of urination. He states he had a CT in the past that showed a 9 mm stone in his left kidney. Patient denies any fever chills. States he is otherwise been feeling well. No other complaints at this time. His urologist is Dr. Lemons through [facility]. Past Medical History - Allergies and Home Meds Allergies/Adverse Reactions: Allergies No Known Allergies Allergy (Verified 08/20/20 04:02) Primary Care Physician: Candy Velasco MD [Primary Care Provider] - Past Medical History: - - kidney stones, HTN, hld Surgical History: - - Lithotripsy Lives: Spouse/ Significant Other Smoking Status: Never smoker Review of Systems General: Denies: Chills, Fever, Sweats Eyes: Denies: Visual changes - bilaterally, Diplopia ENT: Denies: Rhinorrhea, Sore throat Cardiovascular: Denies: Chest pain, Palpitations Respiratory: Denies: Dyspnea, Cough, Dyspnea on exertion Gastrointestinal: Reports: Abdominal pain, Nausea. Denies: Vomiting, Diarrhea, Melena, Hematochezia Genitourinary: Denies: Dysuria, Hematuria, Frequency Musculoskeletal: Denies: Back pain, Extremity Pain Skin: Denies: Rash, Wounds Neurological: Denies: Headache, Weakness, Numbness Physical Exam Vital Signs/Narrative: Vital Signs Temp Pulse Resp Pulse Ox 08/20/20 04:02 97.9 F 65 16 97 Inital Vital Signs reviewed: Yes General: Well nourished, Well developed, No Acute Distress Head: Normocephalic, Atraumatic Eyes: Perrl, EOMI ENT: Moist mucous membranes, No rhinorrhea Neck: Supple, Nontender Cardiovascular: Regular rate, Regular rhythm, No murmurs Respiratory: No distress, CTA bilaterally, Chest nontender Abdomen: Soft, Nontender, Nondistended, Normal bowel sounds, - - Points to his left lower quadrant as area of pain but is not reproducible on exam. Negative for: Guarding, Rebound tenderness Back: Nontender, Normal Inspection. Negative for: CVA tenderness, Spinal tenderness Extremities: Nontender, No edema, - - 2 Plus bilateral DP pulses Skin: Normal color, No rash Neurological: Alert, Oriented x3, Cranial nerves II-XII grossly intact, Normal Strength, Normal Sensation Psychological: Normal affect, Normal Mood Diagnostic/Tx/Re-eval Clinical Impression(s) from Imaging Studies Abdomen/Pelvis CT 08/20/20 04:20 IMPRESSION: Obstructing stone left proximal ureter approximately at the level of the ureteral pelvic junction measuring 1.0 x 0.66 cm. There is moderate left hydronephrosis. There are multiple stones left kidney. Mild/moderate constipation diverticulosis no diverticulitis. Findings suggest mild ileus. No appendicitis. Degenerative changes of thoracolumbar spine. Electronically Signed: Emily Collins MD at 4:58 EST Tel , Service support , Laboratory Data 08/20/20 08/20/20 08/20/20 04:08 04:08 04:15 WBC 8.2 RBC 4.48 L Hgb 14.2 Hct 39.8 L MCV 88.8 MCH 31.7 MCHC 35.7 RDW Std Deviation 43.8 RDW Coeff of Saira 13.7 Plt Count 237 MPV 9.3 Immature Gran % (Auto) 0.600 Neut % (Auto) 59.1 Lymph % (Auto) 29.4 Lewis % (Auto) 8.8 Eos % (Auto) 1.6 Baso % (Auto) 0.5 Absolute Neuts (auto) 4.9 Absolute Lymphs (auto) 2.42 Nucleated RBC % 0 Sodium 139 Potassium 3.4 L Chloride 107 Carbon Dioxide 24.0 Anion Gap 8 BUN 20 H Creatinine 1.12 Estim Creat Clear Calc 68.17 Est GFR (MDRD) Af Amer 84 Est GFR (MDRD) Non-Af 69 BUN/Creatinine Ratio 17.9 Glucose 144 H Calcium 8.8 Total Bilirubin 0.60 AST 15 ALT 32 Alkaline Phosphatase 73 Total Protein 6.9 Albumin 3.7 Globulin 3.2 Albumin/Globulin Ratio 1.2 Urine Color Yellow Urine Clarity Clear Urine pH 5.0 Ur Specific [place] 1.025 Urine Protein 15 H Urine Glucose (UA) Normal Urine Ketones Negative Urine Occult Blood 250 H Urine Nitrite Negative Urine Bilirubin Negative Urine Urobilinogen Normal Ur Leukocyte Esterase 25 H Urine RBC 25-50 SEEN Urine WBC 5-10 SEEN Ur Squamous Epith Cells 0-5 SEEN Urine Bacteria 0 SEEN Urine Mucus 0 SEEN - Medical Decision Making Patient evaluated for left lower abdominal pain and history of kidney stones. Urinalysis shows hematuria which is consistent with ureterolithiasis. No signs of infection. Patient is given IV Toradol, morphine, Zofran and fluids in the ER for pain control. He does have improvement of his symptoms. CT obtained which shows a 1 cm stone in the proximal ureter on the left. This coincides with his presentation and pain. Patient is offered follow-up with our urologist however he states he would like to follow-up with his at [facility]. He will call in the morning as he is counseled he will more than likely need surgical management of the stone. He does not have an JOVITA and has adequate pain control so this can be done outpatient. Will page his urologist. Patient given a dose of oxycodone prior to discharge. Will be discharged home with a course of Flomax, Zofran and Percocet for pain control. Patient is counseled on signs and symptoms requiring return to the emergency room. Patient verbalizes agreement and understand this plan. Patient discharged home in stable and improved condition. ED Disposition - Plan for ED Patient: Disposition: Home or Assisted Living Diagnosis: Renal colic on left side, Renal lithiasis Instructions: ED Kidney Stone w/ Colic Prescriptions: Tamsulosin HCl [Flomax] 0.4 mg PO DAILY #7 cap Transmission Status: Pending to [facility] Oxycodone HCl/Acetaminophen [Percocet 5/325] 1 tablet PO Q6H PRN PRN 3 Days #12 tablet PRN Reason: Pain Transmission Status: Received by [facility] Ondansetron [Zofran Odt] 4 mg PO Q8H PRN PRN #10 tab PRN Reason: Nausea Transmission Status: Pending to [facility] Referrals: Candy Velasco MD [Primary Care Provider] - Lev Lewis MD [STAFF PHYSICIAN] - Additional Instructions: Please call your urologist in the morning to schedule close outpatient follow-up.
[2020-08-20] MEDS: oxyCODONE 5 MG Tablet PO (05:34)
== END 2020-08-20 05:38 | disposition home or self-care (01) ==
PROVIDERS: Emergency Provider Emergency Medicine; PCP Internal Medicine
DX: N13.2 Hydronephrosis with renal and ureteral calculous obstruction (principal); Z87.442 Personal history of urinary calculi; I10 Essential (primary) hypertension; E78.5 Hyperlipidemia, unspecified
CPT/HCPCS: 74176; 80053; 81001; 85025; 96361; 96374; 96375; 99284; J7030; J2405